=== PATIENT | female | born 1950 | race Caucasian/White ===

== ENCOUNTER → 2016-02-11 | Outpatient (CLI) | payer MEDICARE ==
[~2016-02-11] MED LIST: ALBU8.5H3 INH; BECL8.7A INH; GABA300S PO; LEVO150T75 PO; MELO-216 PO
--- NOTE | 2016-02-11 12:22 | RADRPT ---
PROCEDURE: XR left wrist. CLINICAL INDICATION: Wrist pain TECHNIQUE: PA, oblique and lateral views are available for review. COMPARISON: 01/20/2016 FINDINGS: There is normal mineralization. There is a healing transverse impacted nondisplaced distal radial f racture. There is no change in the ulnar styloid avulsion fracture. There is moderate to severe ost eoarthrosis involving the 1st carpal-metacarpal joint. This is associated with joint space narrowing , subchondral sclerosis and osteophytosis. 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 RPTAT: HGDB .Radames Perez MD, Date Time Electronically viewed and signed by .Radames Perez MD, on 02/11/2016 12:21 .B/
--- NOTE | 2016-02-11 12:24 | RADRPT ---
PROCEDURE: XR right knee. CLINICAL INDICATION: Postop TECHNIQUE: 2 views are available for review. COMPARISON: 01/10/2016 FINDINGS: Diffuse osteopenia. ORIF of healing comminuted distal femoral fracture with a lateral plate and mult iple screws. No osseous lesions are identified. The joints are unremarkable. The soft tissues are un remarkable. IMPRESSION: Diffuse osteopenia ORIF of healing comminuted distal femoral fracture with a lateral plate and multiple screws RPTAT: HGDB .Radames Perez MD, Date Time Electronically viewed and signed by .Radames Perez MD, on 02/11/2016 12:24 .B/
--- NOTE | 2016-02-11 13:18 | RADRPT ---
PROCEDURE: XR right femur. CLINICAL INDICATION: Pain TECHNIQUE: AP and lateral views performed COMPARISON: No prior studies are available for comparison. FINDINGS: ORIF of a healing lower third femoral fracture with a lateral plate and multiple screws. There is severe right hip osteoarthrosis. This is associated with joint space narrowing, subchondral sclerosis, subchondral cyst formation and osteophytosis. There is normal mineralization. No osseo us lesions are identified. The soft tissues are unremarkable. IMPRESSION: ORIF of a healing lower third femoral fracture with a lateral plate and multiple screws Severe right hip osteoarthrosis. RPTAT: HGDB .Radames Perez MD, Date Time Electronically viewed and signed by .Radames Perez MD, on 02/11/2016 13:17 .B/
--- NOTE | 2016-02-12 08:49 | HKNOTE ---
DATE OF SERVICE: 02/11/2016 INTERVAL HISTORY: The patient presents today for a followup on her right knee. She is now approximately 4 weeks status post ORIF of her right distal femur fracture. She is doing well overall. She is wearing a knee immobilizer. She is ambulating with the knee locked in extension using a walker. Her pain is improving, although she is still using intermittent pain medication. Additionally, the patient does has a Velcro splint around her left wrist. Her left wrist is doing much better overall. She has minimal pain in regards to her left wrist. She has resumed smoking tobacco. She presents today for a postoperative evaluation. PHYSICAL EXAMINATION: GENERAL: On exam today, the patient is alert and oriented x4, in no acute distress. RIGHT LOWER EXTREMITY: She is wearing a knee immobilizer and ambulating with a walker with the knee locked in extension. The incision is clean, dry, intact and well healed. Range of motion is adequate. There is some notable quad atrophy. Compartments are soft. Neurovascular status is intact distally. Varus/valgus force of the right knee are within normal limits. LEFT WRIST: Exam of the left wrist demonstrates atrophy. She is able to flex, extend, ulnarly and radial deviate the left wrist. Sensation along the median, ulnar and radial nerves is intact. She has a strong 2+ radial pulse distally. Neurovascular status is intact. IMAGING: Two views of the left knee as well as 3 views of the left wrist were obtained today and reviewed by me. Left knee x-rays demonstrate good anatomic alignment. There is notable osteopenia. There is still a residual fracture line without significant callus formation at this point yet. X-rays of the left wrist demonstrates a well healing nondisplaced distal radius and ulnar styloid fracture. There is early callus formation that is evident. ASSESSMENT: This is a 66-year-old female who is here today for followup on her right distal femur fracture as well as left distal radius fracture. PLAN: 1. Refill of tramadol 50 mg, quantity #60 with 0 refills. 2. Begin gentle knee range of motion exercises, nonweightbearing including flexion and extension. 3. We discussed smoking cessation at length today. 4. Continue partial weightbearing on the right lower extremity with the knee locked in extension wearing a hinged knee brace or knee immobilizer. 5. Continue Velcro splint for the left wrist. 6. Follow up in the office in approximately 5 weeks. Dictated By: AGNES ETIENNE/MACHO Conf#: [id number] DID#: [id number] MTDD
== END | disposition home or self-care (01) ==
LOC: HKI 09:47
PROVIDERS: ATTEND Orthopaedic Surgery
DX: Z47.89 Encounter for other orthopedic aftercare (principal); S72.401D Unspecified fracture of lower end of right femur, subsequent encounter for closed fracture with routine healing; S52.501D Unspecified fracture of the lower end of right radius, subsequent encounter for closed fracture with routine healing; L84 Corns and callosities
CPT/HCPCS: 73110; 73552; 73560; G0463

== ENCOUNTER → 2016-03-17 | Outpatient (CLI) | payer MEDICARE ==
[~2016-03-17] MED LIST changes: -LEVO150T75 PO; +SYN15 PO
--- NOTE | 2016-03-17 17:30 | RADRPT ---
PROCEDURE: XR right knee. CLINICAL INDICATION: Knee pain TECHNIQUE: AP and lateral views are available for review. COMPARISON: 02/11/2016 FINDINGS: ORIF of healing distal femoral fracture with a lateral plate and multiple screws. No change in alig nment. There is diffuse osteopenia. No osseous lesions are identified. The joints are unremarkabl e. The soft tissues are unremarkable. IMPRESSION: Diffuse osteopenia ORIF of healing distal femoral fracture with a lateral plate and multiple screws RPTAT: HG[facility] .Radames Perez MD, MD Date Time Electronically viewed and signed by .Radames Perez MD, MD on 03/17/2016 17:29 .B/
--- NOTE | 2016-03-17 17:32 | RADRPT ---
PROCEDURE: XR right femur. CLINICAL INDICATION: Hip pain TECHNIQUE: AP and lateral views performed COMPARISON: 02/11/2016 FINDINGS: ORIF of a lower third femoral fracture with a lateral plate and multiple screws. There is severe right hip osteoarthrosis. This is associated with joint space narrowing, subchondral sclerosis, subchondral cyst formation and osteophytosis. There is normal mineralization. No osseous lesions are identified. The soft tissues are unremarkable. IMPRESSION: ORIF of a lower third femoral fracture with a lateral plate and multiple screws (further healing sin ce the previous examination) Severe right hip osteoarthrosis. RPTAT: HGDB .Radames Perez MD, MD Date Time Electronically viewed and signed by .Radames Perez MD, on 03/17/2016 17:31 .B/
== END | disposition home or self-care (01) ==
LOC: HKI 09:25
PROVIDERS: ATTEND Orthopaedic Surgery
DX: S72.461D Displaced supracondylar fracture with intracondylar extension of lower end of right femur, subsequent encounter for closed fracture with routine healing (principal); M25.561 Pain in right knee; W01.0XXD Fall on same level from slipping, tripping and stumbling without subsequent striking against object, subsequent encounter
CPT/HCPCS: 73552; 73560; G0463

== ENCOUNTER → 2016-04-28 | Outpatient (CLI) | payer MEDICARE ==
--- NOTE | 2016-04-28 09:59 | RADRPT ---
PROCEDURE: XR right femur. CLINICAL INDICATION: Pain TECHNIQUE: AP and lateral views of the upper femur performed COMPARISON: 03/17/2016 FINDINGS: ORIF of a lower third femoral fracture with a lateral plate and multiple screws. There is severe right hip osteoarthrosis. This is associated with joint space narrowing, subchondral sclerosis, subchondral cyst formation and osteophytosis. There is normal mineralization. No osseous lesions are identified. The soft tissues are unremarkable. IMPRESSION: ORIF of a lower third femoral fracture with a lateral plate and multiple screws (further healing sin ce the previous examination) Severe right hip osteoarthrosis. Unchanged from the previous examination RPTAT: HGDB .Radames Perez MD, MD Date Time Electronically viewed and signed by .Radames Perez MD, on 04/28/2016 09:59 .B/
--- NOTE | 2016-04-28 10:02 | RADRPT ---
PROCEDURE: XR right knee. CLINICAL INDICATION: Knee pain TECHNIQUE: AP weightbearing, PA weightbearing, lateral weightbearing and sunrise views are availab le for review. COMPARISON: 02/11/2016 and 03/17/2016 FINDINGS: ORIF of healing distal femoral fracture with a lateral plate and multiple screws. No change in align ment. There is diffuse osteopenia. No osseous lesions are identified. The joints are unremarkable. T he soft tissues are unremarkable. IMPRESSION: Diffuse osteopenia ORIF of healing distal femoral fracture with a lateral plate and multiple screws RPTAT: HGDB .Radames Perez MD, MD Date Time Electronically viewed and signed by .Radames Perez MD, on 04/28/2016 10:02 .B/
== END | disposition home or self-care (01) ==
LOC: HKI 09:27
PROVIDERS: ATTEND Orthopaedic Surgery
DX: Z09 Encounter for follow-up examination after completed treatment for conditions other than malignant neoplasm (principal); S72.461D Displaced supracondylar fracture with intracondylar extension of lower end of right femur, subsequent encounter for closed fracture with routine healing
CPT/HCPCS: 73552; 73560; G0463

== ENCOUNTER → 2016-07-14 | Outpatient (CLI) | payer MEDICARE ==
--- NOTE | 2016-07-15 09:32 | RADRPT ---
PROCEDURE: XR right knee. CLINICAL INDICATION: Knee pain TECHNIQUE: AP and lateral weightbearing views are available for review. COMPARISON: 04/28/2016 FINDINGS: There is mild osteoarthrosis involving the medial tibial femoral compartment, lateral tibial femoral compartment and patellofemoral compartment. This is associated with minimal joint space narrowing a nd minimal osteophytosis) There is diffuse osteopenia. ORIF of oblique distal femoral fracture.. No osseous lesions are iden tified. The soft tissues are unremarkable. IMPRESSION: Diffuse osteopenia Mild osteoarthrosis involving the medial tibial femoral compartment, lateral tibial femoral compartm ent and patellofemoral compartment. ORIF of an oblique distal femoral fracture. RPTAT: HGDB .Radames Perez MD, MD Date Time Electronically viewed and signed by .Radames Perez MD, on 07/15/2016 09:32 .B/
--- NOTE | 2016-07-15 09:35 | RADRPT ---
PROCEDURE: XR right femur. CLINICAL INDICATION: Hip pain TECHNIQUE: AP and lateral views of the upper femur performed COMPARISON: 04/28/2016 FINDINGS: There is no change in the ORIF of an oblique distal femoral fracture with a lateral plate and multip le screws. There is severe right hip osteoarthrosis. This is associated with joint space narrowing, subchondral sclerosis , subchondral cyst formation and osteophytosis. There is diffuse osteopenia. No fractur es or osseous lesions are identified. The soft tissues are unremarkable. IMPRESSION: No change in ORIF of an oblique distal femoral fracture with a lateral plate and multiple screws Severe right hip osteoarthrosis. Diffuse osteopenia RPTAT: HGDB .Radames Perez MD, MD Date Time Electronically viewed and signed by .Radames Perez MD, on 07/15/2016 09:35 .B/
== END | disposition home or self-care (01) ==
LOC: HKI 08:56
PROVIDERS: ATTEND Orthopaedic Surgery
DX: S72.461 Displaced supracondylar fracture with intracondylar extension of lower end of right femur (principal); Z47.89 Encounter for other orthopedic aftercare; M25.561 Pain in right knee; M16.11 Unilateral primary osteoarthritis, right hip; M25.551 Pain in right hip
CPT/HCPCS: 73552; 73560; G0463